=== PATIENT | female | born 1995 | race Caucasian/White ===

== ENCOUNTER 2020-08-20 07:07 | Day surgery (SDC) | payer MEDICAID ==
[2020-08-13 12:15] LABS: BASOPHILS # (AUTO) 0.1 X10'3 (0-0.2); BASOPHILS % (AUTO) 0.6 % (0-1); EOSINOPHILS # (AUTO) 0.1 X10'3 (0-0.9); EOSINOPHILS % (AUTO) 1.4 % (0-6); LYMPHOCYTES # (AUTO) 2.1 X10'3 (1.1-4.8); MEAN CORPUSCULAR HEMOGLOBIN 31.6 PG (27.0-31.0); MEAN CORPUSCULAR HGB CONC 33.3 g/dL (33.0-36.5); MEAN CORPUSCULAR VOLUME 94.9 FL (78-98); MEAN PLATELET VOLUME 8.2 FL (7.4-10.4); MONOCYTES # (AUTO) 0.5 X10'3 (0-0.9); MONOCYTES % (AUTO) 5.3 % (2-12); NEUTROPHILS # (AUTO) 6.8 X10'3 (1.8-7.7); NEUTROPHILS % (AUTO) 70.7 % (42-75); PRE OP HEMATOCRIT 38.9 % (35.0-45.0); PRE OP PLATELET COUNT 298 X10'3 (140-440); RED CELL DISTRIBUTION WIDTH 13.3 % (11.5-14.5)
[2020-08-13 12:15] LABS: CLARITY,URINE CLEAR (Clear); COLOR,URINE STRAW (Yellow); GLUCOSE, URINE NEGATIVE (Neg); KETONES,URINE NEGATIVE (Neg); LEUKOCYTE ESTERASE ,URINE TRACE (Neg); NITRITES, URINE NEGATIVE (Neg); OCCULT BLOOD,URINE TRACE-INTACT (Neg); PH,URINE 7.5 (4.8-8.0); PROTEIN,URINE NEGATIVE (Neg); UROBILINOGEN,URINE 0.2 E.U/dL (0.2-1.0)
[2020-08-13 12:16] LABS: UA COLLECTION TYPE NON-SPECIFIED
[2020-08-13 12:24] LABS: BACTERIA,URINE FEW /HPF (Neg); RBC,URINE 0-2 /HPF (0-2); SQUAMOUS EPITHELIAL CELL,UR FEW /LPF (FEW); WBC,URINE 0-4 /HPF (0-4)
[2020-08-13 12:27] LABS: PRE OP PROTIME 10.5 SECONDS (9.0-12.0)
[2020-08-13 12:29] LABS: ALBUMIN 4.2 G/DL (3.4-5.0); ALBUMIN/GLOBULIN RATIO 1.1 (1.1-1.5); ALKALINE PHOSPHATASE 53 IU/L (46-116); BLOOD UREA NITROGEN 11 MG/DL (7-18); BUN/CREATININE RATIO 15.7 (6.6-38.0); CALCIUM 9.6 MG/DL (8.5-10.1); CHLORIDE 104 MMOL/L (99-107); PRE OP ALT 25 U/L (30-65); PRE OP ANION GAP 10 (8-16); PRE OP AST 18 U/L (10-37); PRE OP BILIRUB, TOTAL 0.5 MG/DL (0.0-1.0); PRE OP GLUCOSE 90 MG/DL (70-104); PRE OP POTASSIUM 3.6 MMOL/L (3.4-5.1); PRE OP SODIUM 138 MMOL/L (135-145); TOTAL CARBON DIOXIDE 24.4 MMOL/L (24-32); TOTAL PROTEIN 7.9 G/DL (6.4-8.2); eGFR > 90 ML/MIN
[2020-08-13 12:40] LABS: HCG SERUM QL NEGATIVE
[~2020-08-20] VITALS: Ht 165.1 cm; Wt 70.0 kg
[2020-08-20] VITALS (11 sets, daily range): BP systolic 110–130; BP diastolic 64–87
[~2020-08-20 07:07] MED LIST: LEVO1TAB80 PO; ceFOXitin 2GM-NS 100mL ADDvant 100 ML IV ONE; famotidine 20mg tablet PO ONE; ringers solution, lacted 1,000 ML IV SCH
[2020-08-20] MEDS ORDERED: BUPIVAcaine/PF 2.5 mg/ml (0.25%) 30ml vial ONE (08:10)
[2020-08-20] MEDS ORDERED: ondansetron/PF 4mg/2ml inj IV PRN (08:10)
[2020-08-20] MEDS ORDERED: proCHLORperazine 10 MG/2 ml inj IV PRN (08:10)
[2020-08-20] MEDS ORDERED: ringers solution, lacted 1,000 ML IV SCH (08:10)
[2020-08-20] MEDS ORDERED: morphine 2 MG/ML inj. syringe IV PRN (08:10)
[2020-08-20] MEDS ORDERED: meperidine/PF 25mg/ml syringe IV PRN ×3 (08:10)
[2020-08-20] MEDS ORDERED: morphine 4 MG/ML inj SYRINge IV PRN (08:10)
[2020-08-20] MEDS ORDERED: fentaNYL/PF 50MCG/1 ML 2ML syringe ONE ×2 (08:12→08:45)
[2020-08-20] MEDS ORDERED: midazolam 1 mg/ML 2ml injection ONE (08:12)
[2020-08-20] MEDS ORDERED: propofol inj 20 ML IV ONE (08:14)
[2020-08-20] MEDS ORDERED: LIDOcaine 2% (20mg/ml) 5ml vial ONE (08:14)
[2020-08-20] MEDS ORDERED: rocuronium 10mg/ml inj IV ONE (08:14)
[2020-08-20] MEDS ORDERED: dexamethasone sod phosphate 4mg/ml inj. ONE (08:15)
[2020-08-20] MEDS ORDERED: sevoflurane 250ml liquid IH ONE (08:16)
[2020-08-20] MEDS ORDERED: ondansetron/PF 4mg/2ml inj ONE (08:58)
[2020-08-20] MEDS ORDERED: glycopyrrolate 0.2mg/ml inj ONE (08:58)
[2020-08-20] MEDS ORDERED: neostigmine methylsulfate 1 MG/ML 10ml vial ONE (08:58)
--- NOTE | 2020-08-20 09:15 | NUR ---
Received from OR via [facility], accompanied by Anesthesiologist DR ASCENCIO and report given by Anesthesiologist. PATIENT WAKING UP, DENIES PAIN, V/S WNL, NEUROVASCULAR CHECKS INTACT, 20G PIV RUE-LR RUNNING AT 100ML/HR, SCD ON, DERMABOND TO LAP SITES OF ABDOMEN X 3 - COVERED WITH BAND-AIDS.
[2020-08-20] MEDS ORDERED: HYDROcodone/acetaminophen 5mg/325mg tablet PO ONE (10:05)
[2020-08-20] MEDS ORDERED: ondansetron 4mg rapidly disintigrating tab PO ONE (10:10)
--- NOTE | 2020-08-20 10:10 | NUR ---
AFTER STANDING AND GETTING DRESSED, PIV D/CD AND THEN PT BEGAN TO FEEL A BIT NAUSEATED-PT SAT BACK IN BED, AND ORDERED PO ZOFRAN.
--- NOTE | 2020-08-20 10:20 | NUR ---
VSS, NAUSEA RESOLVING NOW THAT PT IS LAYING DOWN, GIVEN PO ZOFRAN
--- NOTE | 2020-08-20 10:55 | NUR ---
PT TOLERATING CRACKERS AND WATER, NAUSEA RESOLVING - GIVEN 1 NORCO FOR PAIN. VSS
--- NOTE | 2020-08-20 11:05 | NUR ---
PATIENT A&OX4, PAIN 5/10 BUT TOLERABLE - GIVEN 1 NORCO FOR PAIN, V/S WNL, NEUROVASCULAR CHECKS INTACT, 20G PIV RUE D/C WITH NO COMPLICATIONS OBSERVED, SCD OFF, 3 BAND-AIDS TO LAP SITES OF ABDOMEN-CDI. PT FEELING MUCH BETTR AFTER PO ZOFRAN, TOLERATING NORCO AND CRACKERS, FEELING READY TO GO HOME. I HAVE REVIEWED D/C INSTRUCTIONS WITH PATIENT AND HAS VERBALIZED UNDERSTANDING. PATIENT D/C HOME WITH ALL BELONGINGS VIA W/C, FAMILY TO TRANSPORT.
== END 2020-08-20 11:05 | disposition home or self-care (01) ==
LOC: PAS 07:07
PROVIDERS: ATTEND Obstetrics & Gynecology
DX: Z30.2 Encounter for sterilization (principal); Z20.822 Contact with and (suspected) exposure to COVID-19
CPT/HCPCS: 36415; 58661; 80053; 81001; 82948; 84703; 85025; 85610; 85730; 86885; 86900; 86901; 87088; 87635; C1758; J0694; J1100; J2001; J2250; J2405; J2704; J2710; J3010; J3490; A4618; J7120